=== PATIENT | male | born 2005 | race Caucasian/White ===

== ENCOUNTER 2025-01-06 09:05 | Emergency (ER) | payer SELFPAY ==
[~2025-01-06] VITALS: Ht 162.6 cm; Wt 75.0 kg
[2025-01-06 09:07] VITALS: BP 161/75; PULSE 88; RESP 18; TEMP 36.7; O2SAT 99
[2025-01-06] MEDS ORDERED: TETANUS, DIPHTHERIA, PERTUSSIS VAC/PF 0.5ML (>10YR OLD) IM ONE (09:30)
[2025-01-06] MEDS ORDERED: LIDOCAINE HCL/PF 1% 10 MG/ML 5ML VIAL INFIL ONE (09:30)
[2025-01-06] MEDS ORDERED: BACITRACIN ZINC OINT UDPKT TOP ONE (09:30)
[2025-01-06] MEDS: HYDROCODONE/ACETAMINOPHEN 5/325MG TABLET PO ONE (09:36)
== END 2025-01-06 10:08 | disposition left against medical advice (07) ==
LOC: ER 09:05
DX: S61.412A Laceration without foreign body of left hand, initial encounter (principal); X58.XXXA Exposure to other specified factors, initial encounter; Y93.89 Activity, other specified; Y92.89 Other specified places as the place of occurrence of the external cause; Y99.8 Other external cause status
CPT/HCPCS: 99283; J2003; Z7610 ×2; 90715